=== PATIENT | female | born 1950 ===

== ENCOUNTER 2025-03-18 15:25 | Emergency (ER) | payer OTHER ==
[~2025-03-18] VITALS: Ht 154.9 cm; Wt 68.0 kg
[2025-03-18] MEDS ORDERED: TIROSINT75 MCG PO (16:06)
[2025-03-18] MEDS ORDERED: CHLORTHALIDONE25 MG PO (16:06)
[2025-03-18] MEDS ORDERED: LOSARTAN POTASS50 MG PO (16:06)
[2025-03-18] MEDS ORDERED: PANTOPRAZOLE SO40 M2 PO (16:07)
[2025-03-18] MEDS ORDERED: SIMVASTATIN80 MG PO (16:07)
[2025-03-18] MEDS ORDERED: BINOSTO70 MG PO (16:07)
[2025-03-18] MEDS ORDERED: MILLIPRED5 MG PO (16:08)
== END 2025-03-18 16:09 | disposition left against medical advice (07) ==
LOC: ER 15:25
DX: Z53.21 Procedure and treatment not carried out due to patient leaving prior to being seen by health care provider (principal)